=== PATIENT | male | born 1965 | race Caucasian/White ===

== ENCOUNTER 2021-05-10 10:40 | Outpatient (CLI) | payer OTHER, SELFPAY ==
[2021-05-10] MEDS: ACETAMINOPHEN 325 MG TABLET 650 MG PO (11:05)
[2021-05-10] MEDS: FAMOTIDINE 20 MG TABLET PO (11:06)
[2021-05-10] MEDS: diphenhydrAMINE HCl CAP 25 MG CAPSULE PO (11:06)
--- NOTE | 2021-05-10 11:11 | PC.NURSE ---
Pt to room 212 amb. A&Ox3. Antibody infusion plan of care discussed. Pt signed consent. Has no questions or concerns. Oriented to room. Call sawyer in reach. Reminded to call with needs.
--- NOTE | 2021-05-10 12:25 | PC.NURSE ---
Pt tolerated infusion well. Has no questions or concerns. Discharged to home amb.
== END 2021-05-10 10:41 | disposition home or self-care (01) ==
LOC: CHSTREATRM 10:45
PROVIDERS: PCP Internal Medicine; Visit Provider Internal Medicine
DX: U07.1 COVID-19 (principal)
CPT/HCPCS: A9270; J7050; M0245; Q0244; Q0245

== ENCOUNTER 2023-02-28 03:56 | Day surgery (SDC) | payer BC, SELFPAY ==
[2023-02-17 15:04] VITALS: BMI 27.9
[2023-02-28 10:13] VITALS: BP 168/97; PULSE 63; RESP 20; TEMP 36.1; O2SAT 97; BMI 28.2
[2023-02-28] MEDS: LACTATED RINGERS 1,000 ML 150 ML IV CONT (10:24)
--- NOTE | 2023-02-28 10:47 | WPDANESEPPF ---
Anes - Initial Pre Proc Eval Procedure: Operation Date: 02/28/23 11:00 Proposed Procedures p Screening Colonoscopy - Jani Salgado MD Date/Time: 02/28/23 10:47 Surgeon: Jani Salgado MD Pre Op Diagnosis: neoplasm screening Patient Data Age: 57 Gender: M Height: 1.8 m Weight: 91.7 kg Last Vital Signs Temp 97 F L 02/28/23 10:13 Pulse 63 02/28/23 10:13 Resp 20 02/28/23 10:13 BP 168/97 H 02/28/23 10:13 Pulse Ox 97 02/28/23 10:13 O2 Del Method Room Air 02/28/23 10:13 Allergies Allergy/AdvReac Type Severity Reaction Status Date / Time No Known Allergies Allergy Verified 02/17/23 15:06 Home Medications Medication Instructions Recorded Confirmed Type No Home Medications 02/17/23 02/17/23 History Patient hx anesthesia problems: none Family hx anesthesia problems: none Results Review: All pre-operative results and documents have been reviewed as part of the pre-operative evaluation. [facility] Social History Social History Smoking packs per day: 0.5 Smoking cigarettes per day: 10.0 Years smoked: 5 Smoking pack-years: 2.50 Smoking status: Former smoker Tobacco type: cigarettes Alcohol intake: current Alcohol use details: 1-2 beers/week Substance use: never Substance use type: does not use Living arrangements: with family Spiritual care concerns: No Anes - Eval Final PreProcedure Day of Procedure 02/28/23 10:47 Patient weight: normal Heart: regular rate and rhythm Lungs: clear to auscultation Airway: Mallampati scale class II Neurological: alert and oriented Last oral intake: >/= 8 hours ASA classification: II Emergent: no Anesthetic plan: proceed Anesthesia type and monitoring: general GIVS and standard monitoring Results Review: All pre-operative results and documents have been reviewed as part of the pre-operative evaluation. Informed Consent: The patient's anesthetic plan and its attendant risks and benefits were discussed with the patient/family/POA. Questions were solicited and answers provided to the satisfaction of the patient/family/POA.
--- NOTE | 2023-02-28 10:50 | P.HP_ITS ---
History of Present Illness History of Present Illness Consent: Risks, benefits, and alternatives have been discussed and questions answered. Patient agrees to proceed with procedure. Chief complaint: neoplasm screening Narrative: Cornel Vasques is a 57 year old male here for first screening colonoscopy Review of Systems Constitutional: Constitutional: Denies headache(s) and Denies weakness Eyes: Eyes: Denies blurry vision ENT: Reports Normal hearing present, Denies headache(s) and Denies neck pain Cardiovascular: Cardiovascular: Denies chest pain and Denies dyspnea Respiratory: Respiratory: Denies dyspnea Gastrointestinal: Gastrointestinal: Reports no additional gastrointestinal complaints Genitourinary: Genitourinary: Denies dysuria Musculoskeletal: Musculoskeletal: Denies neck pain Integumentary/Breasts: Skin/Breast: Denies dry skin Neurologic: Reports Normal hearing present, Denies headache(s) and Denies w eakness Psychiatric: Psychiatric: Denies anxiety Endocrine: Endocrine: Denies change in body appearance Hematologic/Lymphatic: Hematologic/Lymphatic: Denies easy bleeding Allergic/Immunologic: Allergic/Immunologic: Denies urticaria PMFSH Past Medical History Medical History (Updated 02/28/23 @ 10:51 by Jani Salgado MD) Colon cancer screening Social History Social History Smoking packs per day: 0.5 Smoking cigarettes per day: 10.0 Years smoked: 5 Smoking pack-years: 2.50 Smoking status: Former smoker Tobacco type: cigarettes Alcohol intake: current Alcohol use details: 1-2 beers/week Substance use: never Substance use type: does not use Living arrangements: with family Spiritual care concerns: No Meds Home Medications and Allergies Home Medications Medication Instructions Recorded Confirmed Type No Home Medications 02/17/23 02/17/23 History Allergies Allergy/AdvReac Type Severity Reaction Status Date / Time No Known Allergies Allergy Verified 02/17/23 15:06 Vital Signs Vital Signs - 24 hr 02/28/23 10:13 Temperature 97 F L Pulse Rate 63 Respiratory Rate 20 Blood Pressure 168/97 H Pulse Oximetry 97 Oxygen Delivery Room Air Exam Const: General: comfortable and no acute distress HENMT: Face/Nose/Sinus: Normal nares present Eyes: General: appearance normal, both eyes and all related structures Neck: Neck: no JVD Resp: Auscultation: clear to auscultation bilaterally Cardio: Rate: regular rate Rhythm: regular rhythm GI: Inspection: non-distended GI Palp: Yes Soft to palpation Skin: General skin exam: normal color Neuro: General: gait normal Speech: normal speech Extrem: General: normal to inspection Psych: Mental Status: mental status grossly normal Assessment and Plan Assessment and plan (1) Colon cancer screening: Code(s): Z12.11 - Encounter for screening for malignant neoplasm of colon Status: Acute Assessment and Plan: colonoscopy
--- NOTE | 2023-02-28 11:00 | SUR.OPER ---
PATIENT HAS EYE IRRITATION UNDER EYES PRIOR TO PROCEDURE
[2023-02-28 11:05] VITALS: BP 120/84; PULSE 59; RESP 14; O2SAT 94
[2023-02-28 11:15] VITALS: BP 118/80; PULSE 53; RESP 19; O2SAT 96
[2023-02-28 11:25] VITALS: BP 140/84; PULSE 56; RESP 13; O2SAT 97
== END 2023-02-28 11:29 | disposition home or self-care (01) ==
PROVIDERS: PCP Internal Medicine; Visit Provider Internal Medicine Gastroenterology
PROC: 0DJD8ZZ Inspection of Lower Intestinal Tract, Via Natural or Artificial Opening Endoscopic (ICD-10-PCS; CPT 45378; principal; 2023-02-28 11:00)
DX: Z12.11 Encounter for screening for malignant neoplasm of colon (principal); Z87.891 Personal history of nicotine dependence
CPT/HCPCS: 45378; J2704; J7120